=== PATIENT | male | born 1970 | race African-American/Black ===

== ENCOUNTER 2019-04-07 16:22 | Emergency (ER) | payer OTHER ==
[~2019-04-07] VITALS: Ht 172.7 cm; Wt 83.9 kg
[2019-04-07] MEDS ORDERED: IV NORMAL SALINE 1,000ML 1,000 ML IV SCH (17:17)
[2019-04-07] MEDS ORDERED: SCOPOLAMINE 1.5MG PATCH. TD ONE (17:30)
[2019-04-07] MEDS ORDERED: MECLIZINE 12.5 MG TABLET. PO SCH (17:30)
[2019-04-07] MEDS ORDERED: ONDANSETRON PF 4 MG/2 ML VIAL. IVP ONE (17:30)
[2019-04-07 18:16] LABS: BASO % 1 % (0-3); EOS # 0.2 x10^3/uL (0.0-0.7); EOS % 4 % (0-3); HEMATOCRIT 44.4 % (39.0-53.0); HEMOGLOBIN 14.1 g/dL (13.0-17.5); LYMPH % 21 % (24-48); MEAN CORPUSCULAR HEMOGLOBIN 25 pg (25-35); MEAN CORPUSCULAR HGB CONC 32 g/dL (31-37); MEAN CORPUSCULAR VOLUME 80 fL (79-100); MONO # 0.5 x10^3/uL (0.0-1.1); MONO % 10 % (0-9); NEUT # 3.3 x10^3uL (1.8-7.7); NEUT % 65 % (31-73); PLATELET COUNT 209 x10^3/uL (140-400); RED BLOOD COUNT 5.56 x10^6/uL (4.30-5.70); RED CELL DISTRIBUTION WIDTH 14.2 % (11.5-14.5)
[2019-04-07] MEDS ORDERED: ONDA4TAB12 PO (18:21)
[2019-04-07] MEDS ORDERED: MECL-75 PO (18:21)
--- NOTE | 2019-04-07 18:22 | PHYS DOC ---
Adult General Chief Complaint Chief Complaint: DIZZY/LIGHT HEADED HPI HPI Patient is a 48-year-old male who presents with complaint of acute onset of dizziness at about 2:30 this morning. Patient states that he gotten up to take the dog out and had bent over when he stood up he had acute onset of dizziness. He states that it feels like the room is spinning and he is been a little bit off balance. He also indicates he has had some mild nausea associated with the dizziness. He states that the dizziness is worsened with change of position or if he turns his head quickly. Any lateralizing weakness, speech deficit, motor or sensory deficits. He also denies any visual changes. Patient denies any headache, chest pain or shortness of breath.[] Review of Systems Review of Systems Constitutional: Denies fever or chills [] Respiratory: Denies cough or shortness of breath [] Cardiovascular: No additional information not addressed in HPI [] GI: Denies abdominal pain, vomiting or diarrhea [] Integument: Denies rash or skin lesions [] Neurologic: Denies headache, focal weakness or sensory changes. Complains of vertiginous dizziness [] All other systems were reviewed and found to be within normal limits, except as documented in this note. Current Medications Current Medications Current Medications Medications (Trade) Dose Ordered Sig/Bart Start Time Stop Time Status Last Admin Dose Admin Meclizine HCl (Antivert) 25 mg 1X 04/07/19 17:30 04/07/19 18:02 25 MG Ondansetron HCl (Zofran) 4 mg 1X ONCE 04/07/19 17:30 04/07/19 17:31 DC 04/07/19 18:02 4 MG Scopolamine (Transderm-Scop) 1 patch 1X ONCE 04/07/19 17:30 04/07/19 17:31 DC 04/07/19 18:04 1 PATCH Sodium Chloride 1,000 ml @ 1,000 mls/hr Q1H 04/07/19 17:17 04/07/19 18:16 04/07/19 18:02 1,000 MLS/HR Allergies Allergies Allergies Coded Allergies Type Severity Reaction Last Updated Verified No Known Drug Allergies 04/07/19 No Physical Exam Physical Exam Constitutional: Well developed, well nourished, no acute distress, non-toxic appearance. [] HENT: Normocephalic, atraumatic, bilateral external ears normal, oropharynx moist, no oral exudates, nose normal. [] Eyes: PERRLA, EOMI, conjunctiva normal, no discharge. [] Neck: Normal range of motion, no tenderness, supple. [] Cardiovascular: Regular rate and rhythm[] Lungs & Thorax: Bilateral breath sounds clear to auscultation [] Abdomen: Bowel sounds normal, soft, no tenderness. [] Skin: Warm, dry, no erythema, no rash. [] Extremities: No tenderness, no cyanosis, no clubbing, ROM intact. [] Neurologic: Alert and oriented X 3, no focal deficits noted. [] Current Patient Data Vital Signs Vital Signs Date Time Temp Pulse Resp B/P (MAP) Pulse Ox O2 Delivery O2 Flow Rate FiO2 04/07/19 18:08 59 16 155/93 (113) 100 Room Air EKG EKG [] Radiology/Procedures Radiology/Procedures [] Course & Med Decision Making Course & Med Decision Making Pertinent Labs and Imaging studies reviewed. (See chart for details) [] Dragon Disclaimer Dragon Disclaimer This electronic medical record was generated, in whole or in part, using a voice recognition dictation system. Departure Departure: Impression: Primary Impression: Benign paroxysmal positional vertigo Disposition: HOME, SELF-CARE Condition: STABLE Referrals: SRI WINTER DO (PCP) Patient Instructions: Benign Positional Vertigo Scripts Meclizine Hcl (MECLIZINE HCL) 25 Mg Tablet 1 TAB PO PRN TID PRN for DIZZINESS, #30 TAB Prov: DAYNA TARANGO Jr. DO 04/07/19 Ondansetron (ONDANSETRON ODT) 4 Mg Tab.rapdis 1 TAB PO PRN Q6-8HRS PRN for NAUSEA, #12 TAB Prov: DYANA TARANGO Jr. DO 04/07/19 Problem Qualifiers Primary Impression: Benign paroxysmal positional vertigo Laterality: unspecified laterality Qualified Codes: H81.10 - Benign paroxysmal vertigo, unspecified ear DAYNA TARANGO Jr. DO Apr 07, 2019 18:22
[2019-04-07 18:28] LABS: CALCIUM 9.1 mg/dL (8.5-10.1); CREATININE 1.3 mg/dL (0.7-1.3); GFR 70.7; POTASSIUM 4.3 mmol/L (3.5-5.1)
[2019-04-07 18:41] LABS: BACTERIA,URINE 0 /HPF (0-FEW); BILIRUBIN,URINE NEG (NEG); CLARITY,URINE CLEAR; COLOR,URINE YELLOW; GLUCOSE,URINE NEG (NEG); NITRITE,URINE NEG (NEG); RBC,URINE 0 /HPF (0-2); SQUAMOUS EPITHELIAL CELL,UR OCC /LPF; UROBILINOGEN,URINE 0.2 mg/dL (0.2 mg/dL); WBC,URINE 0 /HPF (0-4)
[2019-04-07 19:06] VITALS: BP 141/84
== END 2019-04-07 19:25 | disposition home or self-care (01) ==
LOC: ER 16:30
DX: H81.10 Benign paroxysmal vertigo, unspecified ear (principal); R42 Dizziness and giddiness
CPT/HCPCS: 36415; 80048; 81001; 85025; 96361; 96374; 99284; J2405; J8597; J7030